=== PATIENT | female | born 1990 | race Caucasian/White ===

== ENCOUNTER 2020-10-07 21:45 | Inpatient (IN) | payer OTHER ==
[~2020-10-07] VITALS: Ht 162.6 cm; Wt 64.3 kg
[2020-10-07 23:42] LABS: BASOPHILS % (AUTO) 0.5 % (0.0-2.0); EOSINOPHILS % (AUTO) 0.5 % (1.0-6.0); HEMATOCRIT 40.1 % (36-46); HEMOGLOBIN 13.3 g/dL (12.0-16.0); LYMPHOCYTES # (AUTO) 2.2 K/uL (1.0-4.8); LYMPHOCYTES % (AUTO) 28.7 % (22.0-44.0); MEAN CORPUSCULAR HEMOGLOBIN 25.1 pg (26.0-34.0); MEAN CORPUSCULAR HGB CONC 33.2 G/dL (31.0-37.0); MEAN CORPUSCULAR VOLUME 76 fL (80-100); MONOCYTES # (AUTO) 0.7 K/uL (0.1-1.0); MONOCYTES % (AUTO) 9.6 % (2.0-9.0); NEUTROPHILS # (AUTO) 4.7 K/uL (1.8-7.7); NEUTROPHILS % (AUTO) 60.7 % (40.0-70.0); PLATELET COUNT (AUTO) 216 K/uL (150-450); RED BLOOD CELL COUNT(AUTO) 5.32 MIL/uL (4.00-5.20); RED CELL DISTRIBUTION WIDTH 15.3 % (11.5-14.5)
[2020-10-07 23:57] LABS: ANION GAP 13 mmol/L (8-16); CALCIUM, TOTAL 8.2 mg/dL (8.8-10.5); CARBON DIOXIDE 24 mmol/L (22-29); CHLORIDE 102 mmol/L (98-107); CREATININE 0.96 mg/dL (0.60-1.30); GLOMERULAR FILTR. RATE CALC > 60 mL/min (>60); GLUCOSE,RANDOM 121 mg/dL (70-110); POTASSIUM 3.1 mmol/L (3.5-5.1); SODIUM SERUM 139 mmol/L (136-145); UREA NITROGEN, BLOOD 19 mg/dL (7-18)
[2020-10-08] VITALS (7 sets, daily range): BP systolic 109–120; BP diastolic 59–80
[2020-10-08 00:03] LABS: ALANINE AMINOTRANSFERASE 44 U/L (12-78); ALBUMIN 3.6 g/dL (3.4-5.0); ALKALINE PHOSPHATASE 81 U/L (46-116); ASPARTATE AMINOTRANSFERASE 15 U/L (15-37); BILIRUBIN,TOTAL 0.5 mg/dL (0.1-1.0); TOTAL PROTEIN, SERUM 7.7 g/dL (6.4-8.2)
[2020-10-08 00:44] LABS: HCG,QUANTITATIVE 1 mIU/mL (0-6)
[2020-10-08] MEDS ORDERED: ACETAMINOPHEN 325 MG TABLET PO PRN (01:30)
[2020-10-08] MEDS ORDERED: 0.9% SODIUM CHLORIDE 10 ML SYRINGE IVP PRN (01:30)
[2020-10-08] MEDS ORDERED: ONDANSETRON HCL 4 MG/2 ML VIAL IVP PRN ×2 (01:30→03:30)
[2020-10-08] MEDS ORDERED: POTASSIUM CHLORIDE 20 MEQ ER TABLET ONE (02:13)
[2020-10-08] MEDS ORDERED: POTASSIUM CHLORIDE 20 MEQ ER TABLET PO ONE (02:15)
[2020-10-08] MEDS ORDERED: INFLUENZA VIRUS VACCINE QVS 2020-21 (6MO+)/PF 60 MCG/0.5 ML SYRINGE IM ONE (03:45)
[2020-10-08] MEDS: ENOXAPARIN SODIUM 40 MG/0.4 ML PF SYRINGE SQ SCH (08:30)
[2020-10-08] MEDS: DOCUSATE SODIUM 100 MG CAPSULE PO SCH ×2 (08:31→21:00)
[2020-10-08] MEDS ORDERED: HydrOXYzine PAMOATE 50 MG CAPSULE PO PRN (12:00)
[2020-10-08] MEDS ORDERED: MAG HYDROX/AL HYDROX/SIMETH ES 30 ML SUSPENSION UDCUP PO PRN (12:00)
[2020-10-08] MEDS ORDERED: DICYCLOMINE HCL 10 MG CAPSULE PO PRN (12:00)
[2020-10-08] MEDS: SERTRALINE HCL 50 MG TABLET PO SCH (17:16)
[2020-10-09 00:30] VITALS: BP 115/59
[2020-10-09 04:56] VITALS: BP 118/65
[2020-10-09 07:34] LABS: PHOSPHORUS 2.4 mg/dL (2.5-4.9); POTASSIUM 3.9 mmol/L (3.5-5.1)
[2020-10-09 08:08] LABS: HEMOGLOBIN A1C 5.1 % (3.8-5.6)
[2020-10-09 08:13] VITALS: BP 117/73
[2020-10-09] MEDS: DOCUSATE SODIUM 100 MG CAPSULE PO SCH ×2 (08:21→20:10)
[2020-10-09] MEDS: ENOXAPARIN SODIUM 40 MG/0.4 ML PF SYRINGE SQ SCH (08:28)
[2020-10-09] MEDS: ACETAMINOPHEN 325 MG TABLET PO PRN (08:28)
[2020-10-09] MEDS: CloNIDine HCL 0.1 MG TABLET PO PRN ×2 (08:28→21:57)
[2020-10-09] MEDS: SERTRALINE HCL 50 MG TABLET PO SCH (11:19)
[2020-10-09 11:59] VITALS: BP 108/67
[2020-10-09] MEDS ORDERED: LOPERAMIDE HCL 2 MG CAPSULE PO PRN (13:45)
[2020-10-09 17:08] VITALS: BP 120/74
[2020-10-09 19:59] VITALS: BP 116/69
[2020-10-09] MEDS: IBUPROFEN 600 MG TABLET PO PRN (21:57)
[2020-10-10] VITALS (8 sets, daily range): BP systolic 105–120; BP diastolic 62–75
[2020-10-10] MEDS: ENOXAPARIN SODIUM 40 MG/0.4 ML PF SYRINGE SQ SCH (08:46)
[2020-10-10] MEDS: IBUPROFEN 600 MG TABLET PO PRN ×2 (08:46→15:21)
[2020-10-10] MEDS: SERTRALINE HCL 50 MG TABLET PO SCH (08:46)
[2020-10-10] MEDS: CloNIDine HCL 0.1 MG TABLET PO PRN ×2 (08:46→15:23)
[2020-10-10] MEDS: DOCUSATE SODIUM 100 MG CAPSULE PO SCH ×2 (09:00→20:34)
[2020-10-10] MEDS: RisperiDONE 1 MG TABLET PO SCH (20:34)
[2020-10-11 05:00] VITALS: BP 119/74
[2020-10-11 07:32] VITALS: BP 120/67
[2020-10-11] MEDS: SERTRALINE HCL 50 MG TABLET PO SCH (08:40)
[2020-10-11] MEDS: CloNIDine HCL 0.1 MG TABLET PO PRN ×3 (08:40→19:41)
[2020-10-11] MEDS: DOCUSATE SODIUM 100 MG CAPSULE PO SCH ×3 (08:40→21:00)
[2020-10-11] MEDS: ENOXAPARIN SODIUM 40 MG/0.4 ML PF SYRINGE SQ SCH (08:40)
[2020-10-11 12:00] VITALS: BP 112/65
[2020-10-11 12:46] VITALS: BP 112/65
[2020-10-11] MEDS: ACETAMINOPHEN 325 MG TABLET PO PRN (15:25)
[2020-10-11 18:11] VITALS: BP 11/73
[2020-10-11 19:22] VITALS: BP 110/73
[2020-10-11] MEDS: RisperiDONE 1 MG TABLET PO SCH (19:40)
[2020-10-12 05:43] VITALS: BP 118/63
[2020-10-12] MEDS: CloNIDine HCL 0.1 MG TABLET PO PRN ×2 (05:48→11:55)
[2020-10-12 07:38] VITALS: BP 99/61
[2020-10-12] MEDS: SERTRALINE HCL 50 MG TABLET PO SCH (08:40)
[2020-10-12] MEDS: DOCUSATE SODIUM 100 MG CAPSULE PO SCH ×2 (08:41→20:16)
[2020-10-12] MEDS: ENOXAPARIN SODIUM 40 MG/0.4 ML PF SYRINGE SQ SCH (08:41)
[2020-10-12 11:37] VITALS: BP 115/75
[2020-10-12 15:37] VITALS: BP 106/62
[2020-10-12 17:05] VITALS: BP 106/62
[2020-10-12] MEDS: RisperiDONE 1 MG TABLET PO SCH (20:14)
[2020-10-12 20:19] VITALS: BP 110/52
[2020-10-13 05:46] VITALS: BP 120/57
[2020-10-13 07:46] VITALS: BP 116/69
[2020-10-13] MEDS: SERTRALINE HCL 50 MG TABLET PO SCH (08:17)
[2020-10-13] MEDS: ENOXAPARIN SODIUM 40 MG/0.4 ML PF SYRINGE SQ SCH (08:17)
[2020-10-13] MEDS: DOCUSATE SODIUM 100 MG CAPSULE PO SCH ×2 (08:17→20:10)
[2020-10-13] MEDS: CloNIDine HCL 0.1 MG TABLET PO PRN (09:50)
[2020-10-13 15:26] VITALS: BP 100/68
[2020-10-13 19:00] VITALS: BP 117/72
[2020-10-13] MEDS: RisperiDONE 1 MG TABLET PO SCH (20:10)
[2020-10-14 03:47] VITALS: BP 115/69
[2020-10-14 08:28] VITALS: BP 122/71
[2020-10-14] MEDS: DOCUSATE SODIUM 100 MG CAPSULE PO SCH ×2 (09:13→20:19)
[2020-10-14] MEDS: ENOXAPARIN SODIUM 40 MG/0.4 ML PF SYRINGE SQ SCH (09:13)
[2020-10-14] MEDS: SERTRALINE HCL 50 MG TABLET PO SCH (09:13)
[2020-10-14] MEDS: CloNIDine HCL 0.1 MG TABLET PO PRN (15:17)
[2020-10-14] MEDS ORDERED: RISP1TAB48 PO (18:17)
[2020-10-14] MEDS ORDERED: SERT50TA12 PO (18:17)
[2020-10-14 19:00] VITALS: BP 106/72
[2020-10-14] MEDS: RisperiDONE 1 MG TABLET PO SCH (20:19)
[2020-10-15] MEDS: ENOXAPARIN SODIUM 40 MG/0.4 ML PF SYRINGE SQ SCH (08:11)
[2020-10-15] MEDS: SERTRALINE HCL 50 MG TABLET PO SCH (08:11)
[2020-10-15] MEDS: DOCUSATE SODIUM 100 MG CAPSULE PO SCH (08:11)
[2020-10-15 08:21] VITALS: BP 119/72
== END 2020-10-15 12:55 | DRG 641 ==
LOC: EMS 21:48 → 5S 10-08 01:30 → 6N 10-10 22:05 → 6S 10-11 15:02
PROVIDERS: ADMIT Internal Medicine; ATTEND Internal Medicine
DX: E87.6 Hypokalemia (principal); F33.3 Major depressive disorder, recurrent, severe with psychotic symptoms; F11.20 Opioid dependence, uncomplicated; Z79.899 Other long term (current) drug therapy
CPT/HCPCS: 83036; 83735; 84100; 84132; 84425; 84439; 84443; G0480; J1650

== ENCOUNTER 2024-07-17 16:09 | Emergency (ER) | payer OTHER ==
[~2024-07-17] VITALS: Ht 162.6 cm; Wt 65.9 kg
[~2024-07-17 16:09] MED LIST: RISP1TAB48 PO; SERT-158 PO
[2024-07-17 16:50] VITALS: BP 133/86; PULSE 86; RESP 20; TEMP 98.6; O2SAT 100
[2024-07-17 19:29] LABS: ANION GAP 8 mmol/L (8-16); CALCIUM, TOTAL 8.9 mg/dL (8.8-10.5); CARBON DIOXIDE 27 mmol/L (22-29); CHLORIDE 101 mmol/L (98-107); CREATININE 0.68 mg/dL (0.60-1.30); GLOMERULAR FILTR. RATE CALC > 60 mL/min (>60); GLUCOSE,RANDOM 95 mg/dL (70-110); SODIUM SERUM 136 mmol/L (136-145); UREA NITROGEN, BLOOD 12 mg/dL (7-18)
[2024-07-17 19:56] LABS: ALCOHOL, URINE DRUG SCREEN NEGATIVE (NEGATIVE); AMPHET/METH SCREEN,URINE POSITIVE (NEGATIVE); BARBITURATE SCREEN, URINE NEGATIVE (NEGATIVE); BENZODIAZEPINES SCREEN,URINE NEGATIVE (NEGATIVE); CANNABINOID SCREEN,URINE NEGATIVE (NEGATIVE); COCAINE SCREEN,URINE NEGATIVE (NEGATIVE); METHADONE SCREEN, URINE NEGATIVE (NEGATIVE); OPIATE SCREEN,URINE NEGATIVE (NEGATIVE); PHENCYCLIDINE SCREEN,URINE NEGATIVE (NEGATIVE)
[2024-07-17] MEDS: BUPRENORPHINE HCL/NALOXONE HCL 8-2 MG SUBLINGUAL TABLET SL ONE (19:57)
== END 2024-07-17 20:09 | disposition left against medical advice (07) ==
LOC: EMS 16:09
DX: F19.239 Other psychoactive substance dependence with withdrawal, unspecified (principal); F41.9 Anxiety disorder, unspecified; F32.A Depression, unspecified; F17.210 Nicotine dependence, cigarettes, uncomplicated; Z76.0 Encounter for issue of repeat prescription; Z98.890 Other specified postprocedural states
CPT/HCPCS: 80048; 80307; 99283